=== PATIENT | male | born 1935 | race Hispanic/Latino ===

== ENCOUNTER 2017-10-08 13:41 | Inpatient (IN) | payer MEDICARE ==
[2017-10-08] MEDS ORDERED: ZOFRAN IV ONE (17:48)
[2017-10-08] MEDS ORDERED: NACL 0.9% 500 ML 500 ML IV ONE (17:48)
[2017-10-08] MEDS ORDERED: MORPHINE IV ONE (17:48)
[2017-10-08 18:26] LABS: Basophils # (Auto) 0.1 K/mm3 (0.0-0.1); Basophils % (Auto) 0.5 % (0.0-1.8); Eosinophils % (Auto) 0.2 % (0.0-4.3); Hematocrit 39.2 % (35.5-45.6); Hemoglobin 12.8 gm/dl (11.8-15.2); Lymphocytes # (Auto) 2.1 K/mm3 (1.2-5.4); Lymphocytes % (Auto) 13.4 % (13.4-35.0); Mean Corpuscular HGB Conc 33 % (32-34); Mean Corpuscular Hemoglobin 30 pg (28-32); Mean Corpuscular Volume 93 fl (84-94); Monocytes # (Auto) 1.7 K/mm3 (0.0-0.8); Monocytes % (Auto) 11.2 % (0.0-7.3); Platelet Count 263 K/mm3 (140-440); Red Blood Count 4.24 M/mm3 (3.65-5.03); Red Cell Distribution Width 13.6 % (13.2-15.2)
--- NOTE | 2017-10-08 18:33 | Emergency Department Report ---
HPI - General Chief Complaint: Extremity Injury, Lower Time Seen by Provider: 10/08/17 16:28 - HPI HPI: The patient is a 81-year-old male who presents for evaluation of bilateral lower leg pain and sensation change. The patient states that since 10:50 PM last night, he has experienced bilateral lower extremity pain, concentrated to the anterior quadriceps, sharp in quality, constant, exacerbated with ambulation or movement of the legs at the hip or knee joints, and associated with numbness of the bilateral toes and distal feet, and mild weakness in the distal right lower leg. He also states that his coordination ambulating has worsened since this morning. The patient denies fever, trauma to the head or head injury, headache, neck pain, neck stiffness, chest pain, dyspnea, abdominal pain, dysuria, flank pain, back pain, vision or hearing changes, smell or taste changes, paresthesias of the arms, head, or body, facial drooping , slurred speech, seizure-like activity, urine or bowel incontinence or retention, or other focal neurological deficit. He shares that he received an ultrasound of his aorta earlier today at his vascular surgeon's office and it was negative for aortic pathology. ED Past Medical Hx - Past Medical History Previous Medical History?: Yes Hx Heart Attack/AMI: Yes (1999) Hx Diabetes: Yes - Surgical History Past Surgical History?: Yes Hx Internal Defibrillator: Yes (x3) Additional Surgical History: aortic aneurysm repair - Social History Smoking Status: Never Smoker ED Review of Systems ROS: Stated complaint: LEG NUMBNESS Other details as noted in HPI Constitutional: denies: fever ENT: denies: throat or neck pain Respiratory: denies: cough, shortness of breath Cardiovascular: denies: chest pain Endocrine: denies unexplained weight loss or gain Gastrointestinal: denies: abdominal pain, nausea Genitourinary: denies: dysuria Musculoskeletal: reports leg pain denies: leg swelling Skin: denies: rash Neurological: denies: headache Hematological/Lymphatic: denies: easy bleeding or easy bruising Psych: denies sadness or hopelessness Physical Exam - Physical Exam Vital Signs: Vital Signs 10/08/17 14:03 Temperature 98.8 F Pulse Rate 80 Respiratory 16 Rate Blood Pressure 122/54 O2 Sat by Pulse 97 Oximetry Physical Exam: General: well-nourished, well-developed, no acute distress Head: Normocephalic, atraumatic Eyes: normal sclera, PERRL, EOM intact ENT: Mucous membranes are pale and dry Neck: trachea midline, neck supple, No neck stiffness, no cervical adenopathy Respiratory: Breath sounds equal bilaterally, no wheezing, rales, or rhonchi Cardio: S1 and S2 present, no murmurs, rubs, gallops, capillary refill is delayed in fingers and toes Abdomen: Normoactive bowel sounds, soft abdomen, no tenderness whatsoever Chest WALL/Back: No tenderness to palpation of the chest wall, no CVA tenderness with percussion Musc: Inspection of the back unremarkable, no midline tenderness of the cervical , thoracic, or lumbar back midline or paraspinal musculature, normal active range of motion at the hip intact bilaterally, no spinous step-off or obvious deformity, ipsi-lateral and contralateral straight leg raise tests are negative. On extremity testing, compartments are soft and pliable, no lower extremity muscular atrophy, spasticity, fasciculations, or clonus, no obvious gross sensation deficit including web space between 1st and 2nd toes, distal pulses intact in the feet bilaterally, capillary refill in the toes delayed bilaterally Skin: No rash Neuro: alert oriented x4, normal cognition, speech normal, no facial drooping, no uvula or tongue deviation on protrusion, no deficit with rotation of neck or shoulder shrug, 4+ motor strength present with flexion of the right leg at the hip joint and extension of the right leg at the knee joint, no other appreciable motor deficits in the left leg or upper extremities with flexion or extension at the shoulder, elbow, wrist, hip, knee, or ankles bilaterally, no obvious gross sensation deficit to crude touch or 2 pt discrimination throughout , 2+ symmetric reflexes on DTR testing at the elbow, forearm, patella, and ankles bilaterally, no coordination deficit with [id number] or eozl-[id number] testing, Babinski downgoing, romberg negative, patient unable to to ambulate without assistance Psych: Normal affect ED Course Vital Signs 10/08/17 14:03 Temperature 98.8 F Pulse Rate 80 Respiratory 16 Rate Blood Pressure 122/54 O2 Sat by Pulse 97 Oximetry ED Medical Decision Making - Lab Data Result diagrams: 10/08/17 17:51 10/08/17 17:51 - Medical Decision Making The patient was seen and examined by myself. The patient is placed on a mandrel press hand and continuous pulse ox. On initial evaluation, the patient was found to be in no distress. Evaluation orders were placed. The patient is given IV pain medicine. Lab results revealed leukocytosis, WBC 15. CT scan of the head is negative for findings concerning for acute stroke. As the patient' s symptoms began last night, greater than 12 hours ago, and the patient not a candidate for TPA. The patient is given a tablet of aspirin for treatment of potential TIA. CT scan of lumbar spine is negative for fracture or subluxation. X-ray of the right knee revealed a large right knee effusion. A consultation for the on-call orthopedic surgeries placed for the a.m. Doppler of the lower extremities to rule out acute DVT is ordered as well. The on-call hospitalist service was contacted. They agreed to admit the patient for further treatment and close monitoring. The ED admit order was placed. The patient was admitted in guarded condition. CT angio of the aorta and lower extremities is ordered and is pending. The patient was reevaluated and found to remain with intact dorsalis pedis pulses bilaterally and intact capillary refill of the toes bilaterally. The patient signed off to the admitting physician Dr. Thompson, whom agreed to follow-up on pending CT angiogram imaging and to subsequently arranged resulting appropriate management. Critical care attestation.: If time is entered above; I have spent that time in minutes in the direct care of this critically ill patient, excluding procedure time. ED Disposition Clinical Impression: Acute pain of right knee, Knee effusion, right, Bilateral leg pain TIA (transient ischemic attack) Qualifiers: Transient cerebral ischemia type: unspecified Qualified Code(s): G45.9 - Transient cerebral ischemic attack, unspecified Disposition: 09 OP ADMIT IP TO THIS HOSP Is pt being admited?: Yes Does the pt Need Aspirin: Yes Condition: Stable Time of Disposition: 18:40 - Assessment Assessment Interval: Baseline - Level of Consciousness 1a. Level of Consciousness: alert - LOC Questions 1b. LOC Questions: answers correctly - LOC Command 1c. LOC Commands: performs tasks correctly - Best Gaze 2. Best Gaze: normal - Visual 3. Visual: no visual loss - Facial Palsy 4. Facial Palsy: normal symmetrical movement - Motor Arm 5b. Motor Arm Right: no drift 5a. Motor Arm Left: no drift - Motor Leg 6a. Motor Leg Left: no drift 6b. Motor Leg Right: no drift - Limb Ataxia 7. Limb Ataxia: present 1 limb - Sensory 8. Sensory: normal - Best Language 9. Best Language: no aphasia - Dysarthria 10. Dysarthria: normal - Extinction and Inattention 11. Extinction/Inattention: no abnormality - Scoring Total Score: 1 Stroke Severity: Minor Stroke
[2017-10-08 18:54] LABS: Albumin 4.1 g/dL (3.9-5); Calcium 10.4 mg/dL (8.4-10.2)
--- NOTE | 2017-10-08 19:16 | Cat Scan Report ---
FINAL REPORT EXAM: CT HEAD/BRAIN WO CON HISTORY: bilateral distal feet numbness, quadraceps pain TECHNIQUE: CT head without contrast PRIORS: None. FINDINGS: No acute intra-axial or extra-axial hemorrhage is identified. There is no evidence of midline shift or mass effect. The ventricles and sulci are within normal limits. Slaughter-white matter differentiation is intact. No acute parenchymal abnormalities seen. Bony calvarium is grossly intact. Visualized portions of the mastoids and paranasal sinuses are unremarkable. IMPRESSION: Negative CT head
--- NOTE | 2017-10-08 19:21 | Cat Scan Report ---
FINAL REPORT EXAM: CT LUMBAR SPINE WO CON HISTORY: bilateral distal feet numbness, quadraceps pain TECHNIQUE: Lumbar spine five views PRIORS: None. FINDINGS: Vertebral bodies demonstrate normal height and alignment. There is a prominent Schmorl's node inferior endplate of L4. There are some marginal vertebral body osteophytes noted. Hypertrophic facet joint changes are present most prominent L3-L4 through L5-S1 there is posterior bulging of the discs L3-L4 L4-5 and L5-S1. There is no evidence of spondylolisthesis. Transverse and spinous processes are intact SI joints are unremarkable. 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
[2017-10-08] MEDS ORDERED: NACL 0.9% 1000 ML 1,000 ML IV ONE (20:19)
[2017-10-08] MEDS ORDERED: NORCO 5/325 PO ONE (20:20)
[2017-10-08] MEDS ORDERED: BABY ASPIRIN PO ONE (20:35)
[2017-10-08 21:00] LABS: INR 1.05 (0.87-1.13)
[2017-10-08 21:01] LABS: Partial Thromboplastin Time 33.9 Sec. (24.2-36.6)
--- NOTE | 2017-10-08 22:11 | XRay Report ---
FINAL REPORT EXAM: XR KNEE 3V RT HISTORY: right knee pain and swelling TECHNIQUE: Right knee three views PRIORS: None. FINDINGS: There is moderate to large joint effusion present. No acute fracture is identified. No dislocation seen. The joint spaces are within normal limits IMPRESSION: Joint effusion
[2017-10-08] MEDS ORDERED: TYLENOL PO PRN (22:46)
[2017-10-08] MEDS ORDERED: ZOFRAN IV PRN (22:47)
[2017-10-08] MEDS ORDERED: MAGNESIUM SULFATE 2GM/50ML 2 GM/50 ML BAG IV ONE (22:48)
--- NOTE | 2017-10-08 23:18 | Cat Scan Report ---
FINAL REPORT EXAM: CT ANGIO ABD/FEMORAL ABD AORTA HISTORY: bilateral lower leg pain and numbness TECHNIQUE: CT abdomen and pelvis and lower extremities with intravenous contrast Study performed with CT angiographic technique. Multiplanar and maximum intensity projection reconstructions were obtained PRIORS: None. FINDINGS: No focal abnormalities identified within the liver parenchyma. There is mild dependent atelectasis at the lung bases. Spleen is normal in size and attenuation no peripancreatic inflammatory changes are observed The kidneys demonstrate symmetric contrast enhancement. The adrenal glands are unremarkable. Noted are several lower pole right renal cysts largest measuring 2.6 centimeters. There is some scarring at the lower pole left kidney. No evidence for colonic or small bowel distention. No free-fluid or free air identified there is aneurysmal dilatation of the thoracic aorta endovascular stent present. The stent is patent. The aorta measures 3.9 centimeters distally. The left common and external iliac arteries are occluded. There is reconstitution at the level of the common femoral artery. The left deep and superficial femoral arteries are patent. The left popliteal artery demonstrates minimal atherosclerosis without significant stenosis or occlusion. There is runoff at the bifurcation to the arteries of the lower leg The right common iliac artery has a stent proximally. There is some atherosclerosis at the right external iliac artery. The right common femoral and popliteal arteries are patent. There lung off to the arteries of the lower leg at the level of the trifurcation. No major vascular occlusion identified on the right. 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 Some scarring noted at the lower pole left kidney
[2017-10-09] MEDS ORDERED: ROCEPHIN/NS 1 GM/50 ML 1 GM/50 ML BAG IV ONE (03:04)
[2017-10-09] MEDS ORDERED: cefTRIAXone 1 GM in NACL 0.9% 20 ML IV ONE (03:15)
--- NOTE | 2017-10-09 05:10 | History and Physical Report ---
CHIEF COMPLAINT: Pain and weakness of the lower extremity. HISTORY OF PRESENT ILLNESS: The patient is an 81-year-old male who started having pain in both lower extremities with change in sensation. The patient also said he feels weak In his lower extremity and could not walk because of this feeling. He has history of associated numbness of both feet and both toes. The patient denies history of any trauma. There was also no history of fever or chills. No history of shortness of breath or chest pain. The patient also denied history of speech impairment or visual impairment. The patient presented for evaluation and had CAT scan of the head done, CAT scan of the lumbar spine done that shows degenerative disk changes from lumbar 3 to lumbar 4 through L5-S1 with posterior disk bulges. There is also finding of facet joints arthropathy. 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 PAST MEDICAL HISTORY: Pertinent for coronary artery disease status post myocardial infarction. Also, the patient has past medical history of diabetes mellitus. PAST SURGICAL HISTORY: Pertinent for defibrillator placement, aortic aneurysm repair. FAMILY HISTORY: Noncontributory. SOCIAL HISTORY: The patient lives with family. Does not smoke, does not drink alcohol and does not use illicit drugs. MEDICATIONS: The patient's home medications are not known at this time. ALLERGIES: THE PATIENT IS ALLERGIC TO PENICILLIN. REVIEW OF SYSTEMS: CONSTITUTIONAL: There is no fever, no chills, no diaphoresis. HEENT: There is no headache or sore throat. CARDIOVASCULAR: There is no chest pain or orthopnea. RESPIRATORY: There is no shortness of breath or cough. GASTROINTESTINAL SYSTEM: There is no nausea, no vomiting, no abdominal pain, diarrhea or constipation. NEUROLOGICAL: There is weakness of the lower extremity with numbness in the feet and difficulty with ambulation or walking. MUSCULOSKELETAL: Show pain in both lower extremities with no swelling noted. DERMATOLOGICAL SYSTEM: There is no skin rash or itching. GENITOURINARY: There is no dysuria, hematuria or flank pain. Rest of the system review is normal. PHYSICAL EXAMINATION: GENERAL: At the time of exam, the patient was found to be alert, oriented x 3, and not in acute distress. VITAL SIGNS: Temperature of 98.8, pulse of 80, respirations of 16, blood pressure 122/54, O2 sat of 97% on room air. HEENT: Showed pupils to be equal, round, reactive to light and accommodating. Extraocular muscles are intact. NECK: Supple with no JVD or carotid bruit. CARDIOVASCULAR: Showed normal first and second heart sounds with no gallops or murmurs. RESPIRATORY: Show good air entry on both sides of the lungs with no abnormal breath sounds. GASTROINTESTINAL SYSTEM: Show abdomen to be full, soft, nontender with no organomegaly or rigidity. NEUROLOGICAL: Shows weakness in both lower extremities, worse on the right lower extremity than the left. There is normal sensory function with lower extremity. MUSCULOSKELETAL SYSTEM: Show no joint swelling and no tenderness in the joints. DERMATOLOGICAL SYSTEM: Show no skin rash. GENITOURINARY: Show no costovertebral angle tenderness. PERTINENT LAB AND IMAGING STUDIES: The patient had CT of the head without contrast done that was unremarkable. Lumbar spine x-ray was done that shows degenerative disk changes from L3-L4 through L5-S1 with posterior disk bulges, ____ of nodes noted, inferior osteophyte of L4 facet joint arthropathy, was noted in the lower lumbar spine and abdominal aortic aneurysm with stent was partially seen. The patient had CT of the abdomen and pelvis done, which shows a fusiform abdominal aortic aneurysm within the vascular stent present. 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 There is lower pole right renal cyst noted as well and some form of scarring noted at the lower pole of the left kidney. DIAGNOSES: 1. Weakness of the lower limbs: 2. 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 PLAN: The patient will be admitted to medical floor and we will have Neurology consult with Dr. Kingsley this morning. Also, the patient will have vascular surgical consult with Dr. 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 The patient will have physical therapy consult because of weakness of the lower extremities and will continue the orthopedic consult put in by the Emergency Room physician because of right knee pain and swelling. The patient will have MRI of the brain without contrast done this morning and will also have bilateral carotid Doppler done because of this weakness in both lower extremities. The patient will be on IV Zofran 4 mg every 8 hours for nausea and vomiting and will be on IV magnesium 2 grams in 500 mL because of low magnesium. The patient will be on Tylenol 650 mg by mouth every 4 hours for fever, headache and DVT prophylaxis will be through sequential compressive device until the patient's MRI of the brain is finally analyzed. The patient's home medication will be reconciled when there are none and will be started. JOB# [id number] OCN/TAI SRIVASTAVA
[2017-10-09] MEDS ORDERED: APRESOLINE IV PRN (07:45)
[2017-10-09] MEDS ORDERED: MORPHINE IV PRN ×2 (07:45→10:00)
[2017-10-09] MEDS ORDERED: MAGNESIUM SULFATE IV ONE (07:57)
--- NOTE | 2017-10-09 09:37 | Nuclear Medicine Report ---
LUNG SCAN, VENTILATION AND PERFUSION: History: Elevated d-dimer. Technique: 5mci of Tc99m MAA was infused for the perfusion images. 15mci XE 133 gas was inhaled for the ventilatory images. No relevant comparison study. Findings: Inhalation of Xenon gas demonstrates a normal distribution of the activity throughout both lungs. The wash out phases show no focal retention of activity. After injection of Technetium 99m macroaggregated albumin gamma camera imaging of the lungs in multiple projections demonstrates normal pulmonary contours with a homogeneous distribution of activity. No focal areas of perfusion deficiency are identified. IMPRESSION: Low probability for pulmonary embolus.
--- NOTE | 2017-10-09 10:02 | XRay Report ---
ROUTINE CHEST, TWO VIEWS: HISTORY: Dyspnea. The trachea, heart, mediastinal contour, lung thomas and bony thorax are unremarkable. Single lead pacemaker device is in position. IMPRESSION: Unremarkable chest x-ray.
[2017-10-09] MEDS ORDERED: MAGNESIUM SULFATE 1 GM in NACL 0.9% 50 ML IV ONE (10:30)
[2017-10-09] MEDS: COLCRYS PO SCH ×2 (11:38→22:50)
[2017-10-09] MEDS: HALFPRIN EC PO SCH (11:38)
--- NOTE | 2017-10-09 12:53 | Progress Note ---
<ILANA DISLA - Last Filed: 10/09/17 14:40> Assessment and Plan Assessment and plan: Brief history obtained from admitting physician -81-year-old male who presents for evaluation of bilateral lower leg pain and sensation change. Patient says he felt weak and couldn't walk because of this feeling. 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 Continues to complain of R knee pain. no new complaints at this time. Labs, nursing notes and reports reviewed. Hospitalist Physical - Constitutional Vitals: Temp Pulse Resp BP Pulse Ox 99.4 F 73 18 133/60 94 10/09/17 08:04 10/09/17 08:04 10/09/17 08:04 10/09/17 08:04 10/09/17 08:04 General appearance: Present: no acute distress, well-nourished - EENT Eyes: Present: PERRL, EOM intact ENT: hearing intact, clear oral mucosa - Neck Neck: Present: supple - Respiratory Respiratory effort: normal Respiratory: bilateral: CTA - Cardiovascular Rhythm: regular Heart Sounds: Present: S1 & S2 - Extremities Extremities: no ischemia, No edema - Abdominal General gastrointestinal: soft, non-tender, non-distended - Integumentary Integumentary: Present: clear, warm, dry - Psychiatric Psychiatric: appropriate mood/affect, intact judgment & insight, cooperative - Neurologic Neurologic: CNII-XII intact, moves all extremities - Allied Health Allied health notes reviewed: nursing Results - Labs CBC & Chem 7: 10/08/17 17:51 10/08/17 17:51 Labs: Laboratory Last Values WBC 15.4 K/mm3 (4.5-11.0) H 10/08/17 17:51 RBC 4.24 M/mm3 (3.65-5.03) 10/08/17 17:51 Hgb 12.8 gm/dl (11.8-15.2) 10/08/17 17:51 Hct 39.2 % (35.5-45.6) 10/08/17 17:51 MCV 93 fl (84-94) 10/08/17 17:51 MCH 30 pg (28-32) 10/08/17 17:51 MCHC 33 % (32-34) 10/08/17 17:51 RDW 13.6 % (13.2-15.2) 10/08/17 17:51 Plt Count 263 K/mm3 (140-440) 10/08/17 17:51 Lymph % (Auto) 13.4 % (13.4-35.0) 10/08/17 17:51 [place] % (Auto) 11.2 % (0.0-7.3) H 10/08/17 17:51 Eos % (Auto) 0.2 % (0.0-4.3) 10/08/17 17:51 Baso % (Auto) 0.5 % (0.0-1.8) 10/08/17 17:51 Lymph # 2.1 K/mm3 (1.2-5.4) 10/08/17 17:51 [place] # 1.7 K/mm3 (0.0-0.8) H 10/08/17 17:51 Eos # 0.0 K/mm3 (0.0-0.4) 10/08/17 17:51 Baso # 0.1 K/mm3 (0.0-0.1) 10/08/17 17:51 Seg Neutrophils % 74.7 % (40.0-70.0) H 10/08/17 17:51 Seg Neutrophils # 11.5 K/mm3 (1.8-7.7) H 10/08/17 17:51 PT 14.3 Sec. (12.2-14.9) 10/08/17 20:38 INR 1.05 (0.87-1.13) 10/08/17 20:38 APTT 33.9 Sec. (24.2-36.6) 10/08/17 20:38 D-Dimer 1127.16 ng/mlDDU (0-234) H 10/08/17 20:38 Sodium 134 mmol/L (137-145) L 10/08/17 17:51 Potassium 3.9 mmol/L (3.6-5.0) 10/08/17 17:51 Chloride 92.5 mmol/L (98-107) L 10/08/17 17:51 Carbon Dioxide 26 mmol/L (22-30) 10/08/17 17:51 Anion Gap 19 mmol/L 10/08/17 17:51 BUN 24 mg/dL (9-20) H 10/08/17 17:51 Creatinine 1.3 mg/dL (0.8-1.5) 10/08/17 17:51 Estimated GFR 53 ml/min 10/08/17 17:51 BUN/Creatinine Ratio 18 % 10/08/17 17:51 Glucose 119 mg/dL (75-100) H 10/08/17 17:51 POC Glucose 238 (70-105) H 10/09/17 11:39 Lactic Acid 0.90 mmol/L (0.7-2.0) 10/08/17 20:38 Uric Acid 8.4 mg/dL (3.5-7.6) H 10/08/17 20:38 Calcium 10.4 mg/dL (8.4-10.2) H 10/08/17 17:51 Magnesium 1.40 mg/dL (1.7-2.3) L 10/08/17 17:51 Total Bilirubin 0.90 mg/dL (0.1-1.2) 10/08/17 17:51 AST 11 units/L (5-40) 10/08/17 17:51 ALT 9 units/L (7-56) 10/08/17 17:51 Alkaline Phosphatase 96 units/L (35-129) 10/08/17 17:51 Total Creatine Kinase 25 units/L (55-170) L 10/08/17 17:51 NT-Pro-B Natriuret Pep 703.1 pg/mL (0-900) 10/08/17 17:51 Total Protein 6.4 g/dL (6.3-8.2) 10/08/17 17:51 Albumin 4.1 g/dL (3.9-5) 10/08/17 17:51 Albumin/Globulin Ratio 1.8 % 10/08/17 17:51 <YUNGMATTHEW R - Last Filed: 10/10/17 00:41> Assessment and Plan Assessment and plan: I saw and evaluated the patient on the day of service. I agree with the findings and the plan of care as documented in the Nurse Practitioner's~note. Hospitalist Physical - Constitutional Vitals: Temp Pulse Resp BP Pulse Ox 98.4 F 69 20 135/72 93 10/09/17 20:34 10/09/17 20:34 10/09/17 20:34 10/09/17 20:34 10/09/17 20:34 Results - Labs CBC & Chem 7: 10/08/17 17:51 10/08/17 17:51 Labs: Laboratory Last Values WBC 15.4 K/mm3 (4.5-11.0) H 10/08/17 17:51 RBC 4.24 M/mm3 (3.65-5.03) 10/08/17 17:51 Hgb 12.8 gm/dl (11.8-15.2) 10/08/17 17:51 Hct 39.2 % (35.5-45.6) 10/08/17 17:51 MCV 93 fl (84-94) 10/08/17 17:51 MCH 30 pg (28-32) 10/08/17 17:51 MCHC 33 % (32-34) 10/08/17 17:51 RDW 13.6 % (13.2-15.2) 10/08/17 17:51 Plt Count 263 K/mm3 (140-440) 10/08/17 17:51 Lymph % (Auto) 13.4 % (13.4-35.0) 10/08/17 17:51 [place] % (Auto) 11.2 % (0.0-7.3) H 10/08/17 17:51 Eos % (Auto) 0.2 % (0.0-4.3) 10/08/17 17:51 Baso % (Auto) 0.5 % (0.0-1.8) 10/08/17 17:51 Lymph # 2.1 K/mm3 (1.2-5.4) 10/08/17 17:51 [place] # 1.7 K/mm3 (0.0-0.8) H 10/08/17 17:51 Eos # 0.0 K/mm3 (0.0-0.4) 10/08/17 17:51 Baso # 0.1 K/mm3 (0.0-0.1) 10/08/17 17:51 Seg Neutrophils % 74.7 % (40.0-70.0) H 10/08/17 17:51 Seg Neutrophils # 11.5 K/mm3 (1.8-7.7) H 10/08/17 17:51 ESR 66 mm/Hr (0-20) 10/09/17 15:31 PT 14.3 Sec. (12.2-14.9) 10/08/17 20:38 INR 1.05 (0.87-1.13) 10/08/17 20:38 APTT 33.9 Sec. (24.2-36.6) 10/08/17 20:38 D-Dimer 1127.16 ng/mlDDU (0-234) H 10/08/17 20:38 Sodium 134 mmol/L (137-145) L 10/08/17 17:51 Potassium 3.9 mmol/L (3.6-5.0) 10/08/17 17:51 Chloride 92.5 mmol/L (98-107) L 10/08/17 17:51 Carbon Dioxide 26 mmol/L (22-30) 10/08/17 17:51 Anion Gap 19 mmol/L 10/08/17 17:51 BUN 24 mg/dL (9-20) H 10/08/17 17:51 Creatinine 1.3 mg/dL (0.8-1.5) 10/08/17 17:51 Estimated GFR 53 ml/min 10/08/17 17:51 BUN/Creatinine Ratio 18 % 10/08/17 17:51 Glucose 119 mg/dL (75-100) H 10/08/17 17:51 POC Glucose 109 (70-105) H 10/09/17 16:25 Lactic Acid 0.90 mmol/L (0.7-2.0) 10/08/17 20:38 Uric Acid 8.4 mg/dL (3.5-7.6) H 10/08/17 20:38 Calcium 10.4 mg/dL (8.4-10.2) H 10/08/17 17:51 Magnesium 1.40 mg/dL (1.7-2.3) L 10/08/17 17:51 Total Bilirubin 0.90 mg/dL (0.1-1.2) 10/08/17 17:51 AST 11 units/L (5-40) 10/08/17 17:51 ALT 9 units/L (7-56) 10/08/17 17:51 Alkaline Phosphatase 96 units/L (35-129) 10/08/17 17:51 Total Creatine Kinase 25 units/L (55-170) L 10/08/17 17:51 C-Reactive Protein 19.00 mg/dL (0.00-1.30) H 10/09/17 15:31 NT-Pro-B Natriuret Pep 703.1 pg/mL (0-900) 10/08/17 17:51 Total Protein 6.4 g/dL (6.3-8.2) 10/08/17 17:51 Albumin 4.1 g/dL (3.9-5) 10/08/17 17:51 Albumin/Globulin Ratio 1.8 % 10/08/17 17:51
--- NOTE | 2017-10-09 21:18 | Consultation ---
History of Present Illness Consult date: 10/09/17 Requesting physician: MATTHEW BARRAGAN Reason for Consult: weakness and paresthesias of legs Chief complaint: weakness and paresthesias of legs History of present illness: This 81-year-old left-handed white male according to the ER physician yesterday : "The patient states that since 10:50 PM last night, he has experienced bilateral lower extremity pain, concentrated to the anterior quadriceps, sharp in quality, constant, exacerbated with ambulation or movement of the legs at the hip or knee joints, and associated with numbness of the bilateral toes and distal feet, and mild weakness in the distal right lower leg. 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 He states symptoms began yesterday morning when he couldn't stand primarily due to weakness in the right leg. He's had pain in the legs from the thighs down since this began with numbness and tingling in the kneecaps and tops of the feet these latter symptoms now improving to being intermittent. He has had no change in bowel or bladder control. He thinks he stopped having erections in 1979 duplex scan showed less than 50% stenosis of the carotids. CT scan of head shows moderate cerebral atrophy. Lumbar spine CT scan shows on my review moderate stenosis at L4-5 with greatly decreased foramina, mild to moderate stenosis at L3-4 with some narrowing of the right foramen, mild disc bulge at L2 -3 with mild narrowing of both foramina right more than left and mild central bulge at L5-S1 but intact foramina. Past History Past Medical History: CAD (with stent that did not work which led then to defibrillator), hypertension Past Surgical History: Other (defibrillator in 2002 of 4 replacements since then ) Social history: other (never illicit drugs. She still works part-time doing wholesale car sales. Was in the [employer] but without chemical exposures.) . denies: smoking (quit in 1998), alcohol abuse (drinks occasional cocktail. Usually 1 or 2 glasses of wine with dinner.), prescription drug abuse, IV drug use Family history: hypertension (unknown), other (no epilepsy). denies: stroke Medications and Allergies Allergies Allergy/AdvReac Type Severity Reaction Status Date / Time Penicillins AdvReac Rash Unverified 11/14/13 09:47 Home Medications Medication Instructions Recorded Confirmed Last Taken Type Aspirin EC [Aspirin Enteric Coated 81 mg PO QDAY 10/09/17 10/09/17 Unknown History TAB] Carvedilol [Coreg] 12.5 mg PO BID 10/09/17 10/09/17 Unknown History Cilostazol [Pletal] 100 mg PO HS 10/09/17 10/09/17 Unknown History amLODIPine [Norvasc] 10 mg PO DAILY 10/09/17 10/09/17 Unknown History metFORMIN 1,000 mg PO BID 10/09/17 10/09/17 Unknown History Active Meds: Active Medications Acetaminophen (Tylenol) 650 mg PO Q4H PRN PRN Reason: For Pain/Fever/Headache Aspirin (Halfprin Ec) 81 mg PO QDAY [facility] Last Admin: 10/09/17 11:38 Dose: 81 mg Atorvastatin Calcium (Lipitor) 40 mg PO QHS [facility] Colchicine (Colcrys) 0.6 mg PO BID [facility] Last Admin: 10/09/17 11:38 Dose: 0.6 mg Enoxaparin Sodium (Lovenox) 40 mg SUB-Q QDAY@2200 [facility] Hydralazine HCl (Apresoline) 10 mg IV Q30MIN PRN PRN Reason: Hypertension Morphine Sulfate (Morphine) 2 mg IV Q4H PRN PRN Reason: Pain, Moderate (4-6) Ondansetron HCl (Zofran) 4 mg IV Q8H PRN PRN Reason: Nausea And Vomiting Review of Systems All systems: negative (was walking fine prior to these events. No headaches or dizziness. Slight snoring but no pauses mentioned and not sleepy driving. Normal memory for age.) Physical Examination - Vital Signs Vital Signs: Vital Signs Temp Pulse Resp BP Pulse Ox 98.8 F 80 16 122/54 97 10/08/17 14:03 10/08/17 14:03 10/08/17 14:03 10/08/17 14:03 10/08/17 14:03 - Physical Exam Narrative exam: General Appearance: well developed well nourished (per BMI) early 80s white male in [facility]. HEENT: atraumatic, normocephalic; no bruits, 2+ Sasha without soreness or induration or enlargement, sclerae nonicteric. Oropharynx pink and moist. Neck: supple, no bruits. Heart: no murmur or extra sounds. Extremities: no clubbing, cyanosis or edema. No posterior tibial or dorsalis pedis pulses palpable on either side. Neurologic Exam: Mental Status: Awake, alert, oriented X 3, speech is clear, names pen and clip but not tip of pen, and abstracts well. Names President and Environmental Health Technician, serial 7's intact, no right-left confusion, gets 2 of 3 objects at 3 minutes, spells WORLD backwards correctly. Cranial Nerves: thomas full, no papilledema, SVPs present, PERRLA, EOMs full with some quick phase horizontal nystagmus to left lateral gaze but no diplopia , facial sensation intact to pinprick and light touch, no facial weakness, Gastelum is midline, gags are positive, shoulder shrug is 5 X 2, tongue protrudes midline. Cerebellar: finger to nose and heel to wright. Sensory: intact to light touch, pinprick decreased below knees, decreased vibrations right ankle and toes. Double simultaneous stimulation is intact. Motor Exam Upper Extremities: no drift or pronation, Mary intact. Senior Sustainability Consultant are 5 X 2, tone is normal. Strength is 5 throughout except triceps are 4+ bilaterally without pain, ADM 05 but there is some intrinsic atrophy though no fasciculations. Motor Exam Lower Extremities: No leg lag. Anxious 5 except as follows: Quadriceps are 4+ bilaterally, hamstrings are 3+ to 4- right but with difficult exam due to pain in the knee And 4+ on the left area to tibia shows give way with local pain at 4+ on the left. Peroneal is 4- on the right with local pain and 4-4+ on the left, EHL is 4- on the left. Mary intact. Tone is normal. No atrophy or fasciculations are noted visually. Reflexes: Palmomental is negative, snout and jaw jerk are slightly positive. Triceps are 2+ right and 1+ left, biceps are 2+ right and 1+ left and brachioradialis are 2 right and 1+ left bilaterally. Cindy's is negative bilaterally. Knee jerks are at least trace on the right but difficult to check fully because of local pain and swelling around the kneecap and trace to 1 on the left, ankle jerks are 0 bilaterally even with reinforcement and without clonus. Toes are downgoing bilaterally to Babinski testing with pain in the ball of the foot on the left during testing. - Assessment Assessment Interval: Baseline - Level of Consciousness 1a. Level of Consciousness: alert - LOC Questions 1b. LOC Questions: answers correctly - LOC Command 1c. LOC Commands: performs tasks correctly - Best Gaze 2. Best Gaze: normal - Visual 3. Visual: no visual loss - Facial Palsy 4. Facial Palsy: normal symmetrical movement - Motor Arm 5b. Motor Arm Right: no drift - Motor Leg 6a. Motor Leg Left: no drift - Limb Ataxia 7. Limb Ataxia: present 1 limb - Sensory 8. Sensory: normal - Best Language 9. Best Language: no aphasia - Dysarthria 10. Dysarthria: normal - Extinction and Inattention 11. Extinction/Inattention: no abnormality Results - Laboratory Findings CBC and BMP: 10/08/17 17:51 10/08/17 17:51 Abnormal Lab Findings: Abnormal Labs 10/08/17 10/08/17 10/08/17 17:51 17:51 20:38 WBC 15.4 H [place] % (Auto) 11.2 H [place] # 1.7 H Seg Neutrophils % 74.7 H Seg Neutrophils # 11.5 H D-Dimer 1127.16 H Sodium 134 L Chloride 92.5 L BUN 24 H Glucose 119 H POC Glucose Uric Acid Calcium 10.4 H Magnesium 1.40 L Total Creatine Kinase 25 L C-Reactive Protein 10/08/17 10/09/17 10/09/17 20:38 08:10 11:39 WBC [place] % (Auto) [place] # Seg Neutrophils % Seg Neutrophils # D-Dimer Sodium Chloride BUN Glucose POC Glucose 119 H 238 H Uric Acid 8.4 H Calcium Magnesium Total Creatine Kinase C-Reactive Protein 10/09/17 10/09/17 15:31 16:25 WBC [place] % (Auto) [place] # Seg Neutrophils % Seg Neutrophils # D-Dimer Sodium Chloride BUN Glucose POC Glucose 109 H Uric Acid Calcium Magnesium Total Creatine Kinase C-Reactive Protein 19.00 H Assessment and Plan Impression: 1. Possible lacunar stroke, perhaps thalamic since associated with pain 2. Arthritis, perhaps gouty 3. Lumbar spinal stenosis Plan: 1. I spoke to Dr. Barragan who thinks he has gout and we'll be treating it with steroids and colchicine. She will order additional labs for arthritis. 2. I discussed the possibility of a lacunar stroke such as a thalamic stroke, suggested in part by asymmetric reflexes. However I concur with treating possible gout to see if all his symptoms resolved. 3. I told Dr. Barragan that I have been told that tertiary center such as [facility] are able to do MRIs even on older defibrillators and pacemakers, which may help distinguish a lacunar stroke from lumbar spinal stenosis. Oral or intravenous steroids could help spinal stenosis but would not help a stroke. 45 minutes spent including review of 100s of lumbar spine CT and head CT images. Thank you for an interesting consult on this pleasant early 80s man. Will sign off for now, call for any questions.
[2017-10-09] MEDS: LOVENOX SUB-Q SCH (22:50)
[2017-10-10 01:40] LABS: BUN/Creatinine Ratio 19; Blood Urea Nitrogen 21 mg/dL (9-20); Hemolysis Index 0
--- NOTE | 2017-10-10 08:24 | Consultation ---
History of Present Illness - Reason for Consult Consult date: 10/10/17 PVD, right prepatellar effusion - History of Present Illness Patient with a history of gout, spinal stenosis and peripheral vascular disease presents with bilateral lower extremity weakness and pain. A CTA of his abdomen and pelvis with runoff to the feet was performed which demonstrates an aorto unity graft extending into the right common iliac artery with occlusion of the left common iliac artery. The left lower extremity is perfuse through. Epigastric collaterals. The right SFA is occluded in the mid and distal portions. Patient's symptoms are not typical of arterial disease. At time of examination, the patient's weakness and lateral lower extremity pain and improved somewhat. Additionally, the patient's right knee effusion is smaller for the patient. Patient has not yet been examined by orthopedic surgery. Past History Past Medical History: CAD (with stent that did not work which led then to defibrillator), hypertension, other (gout) Past Surgical History: Other (defibrillator in 2002 of 4 replacements since then ) Social history: other (never illicit drugs. She still works part-time doing wholesale car sales. Was in the [employer] but without chemical exposures.) . denies: smoking (quit in 1998), alcohol abuse (drinks occasional cocktail. Usually 1 or 2 glasses of wine with dinner.), prescription drug abuse, IV drug use Family history: hypertension (unknown), other (no epilepsy). denies: stroke Medications and Allergies Allergies Allergy/AdvReac Type Severity Reaction Status Date / Time Penicillins AdvReac Rash Unverified 06/05/13 09:47 Home Medications Medication Instructions Recorded Confirmed Last Taken Type Aspirin EC [Aspirin Enteric Coated 81 mg PO QDAY 10/09/17 10/09/17 Unknown History TAB] Carvedilol [Coreg] 12.5 mg PO BID 10/09/17 10/09/17 Unknown History Cilostazol [Pletal] 100 mg PO HS 10/09/17 10/09/17 Unknown History amLODIPine [Norvasc] 10 mg PO DAILY 10/09/17 10/09/17 Unknown History metFORMIN 1,000 mg PO BID 10/09/17 10/09/17 Unknown History Active Meds: Active Medications Acetaminophen (Tylenol) 650 mg PO Q4H PRN PRN Reason: For Pain/Fever/Headache Aspirin (Halfprin Ec) 81 mg PO QDAY [facility] Last Admin: 10/09/17 11:38 Dose: 81 mg Atorvastatin Calcium (Lipitor) 40 mg PO QHS [facility] Last Admin: 10/09/17 22:50 Dose: 40 mg Colchicine (Colcrys) 0.6 mg PO BID [facility] Last Admin: 10/09/17 22:50 Dose: 0.6 mg Enoxaparin Sodium (Lovenox) 40 mg SUB-Q QDAY@2200 [facility] Last Admin: 10/09/17 22:50 Dose: 40 mg Hydralazine HCl (Apresoline) 10 mg IV Q30MIN PRN PRN Reason: Hypertension Morphine Sulfate (Morphine) 2 mg IV Q4H PRN PRN Reason: Pain, Moderate (4-6) Ondansetron HCl (Zofran) 4 mg IV Q8H PRN PRN Reason: Nausea And Vomiting Review of Systems All systems: negative Exam - Constitutional Vitals: Temp Pulse Resp BP Pulse Ox 97.8 F 64 20 140/61 96 10/10/17 03:51 10/10/17 03:51 10/10/17 03:51 10/10/17 03:51 10/10/17 03:51 General appearance: Present: no acute distress - EENT Eyes: Present: PERRL ENT: hearing intact - Neck Neck: Present: supple - Respiratory Respiratory effort: normal - Extremities Extremities: no ischemia, No edema - Abdominal General gastrointestinal: Present: deferred Male genitourinary: Present: deferred - Rectal Rectal Exam: deferred - Psychiatric Psychiatric: appropriate mood/affect, cooperative Results - Labs CBC & Chem 7: 10/08/17 17:51 10/10/17 00:59 Labs: Abnormal lab results 10/09/17 10/09/17 10/09/17 Range/Units 08:10 11:39 15:31 Sodium (137-145) mmol/L Chloride (98-107) mmol/L BUN (9-20) mg/dL Glucose (75-100) mg/dL POC Glucose 119 H 238 H (70-105) C-Reactive Protein 19.00 H (0.00-1.30) mg/dL 10/09/17 10/10/17 10/10/17 Range/Units 16:25 00:59 08:22 Sodium 135 L (137-145) mmol/L Chloride 95.6 L (98-107) mmol/L BUN 21 H (9-20) mg/dL Glucose 204 H (75-100) mg/dL POC Glucose 109 H 138 H (70-105) C-Reactive Protein (0.00-1.30) mg/dL - Imaging and Cardiology CT scan - abdomen: report reviewed, image reviewed Assessment and Plan Patient's peripheral vascular disease is at its baseline. He does have flow to bilateral lower extremities which are not likely to be the cause of his current symptoms. He is responding to steroids. We will await evaluation by orthopedic surgery to determine if there is a need for aspiration of his prepatellar fluid collection.
[2017-10-10] MEDS: COLCRYS PO SCH ×2 (09:39→22:55)
[2017-10-10] MEDS: HALFPRIN EC PO SCH (09:39)
--- NOTE | 2017-10-10 11:26 | Progress Note ---
<ILANA DISLA - Last Filed: 10/10/17 11:21> Assessment and Plan Assessment and plan: Brief history obtained from admitting physician -81-year-old male who presents for evaluation of bilateral lower leg pain and sensation change. Patient says he felt weak and couldn't walk because of this feeling. 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 He does have flow to bilateral lower extremities which are not likely to be the cause of his current symptoms Elevated d-dimer VQ scan showed low probability of PE Type 2 diabetes mellitus ADA diet, Accu-Cheks before meals and at bedtime, and A1c, sliding scale insulin Hypomagnesemia Supplemented Hyperuricemia Patient initiated on colchicine DVT prophylaxis Lovenox History Interval history: Patient seen and examined, he says that he is doing much better today. He is able to sit up and took a few steps but experienced pins and needles sensation on the right leg. Swelling has improved on his R knee. Labs, nursing notes and reports reviewed. Hospitalist Physical - Constitutional Vitals: Temp Pulse Resp BP Pulse Ox 98.7 F 64 19 140/61 96 10/10/17 09:33 10/10/17 03:51 10/10/17 09:33 10/10/17 03:51 10/10/17 03:51 General appearance: Present: no acute distress Results - Labs CBC & Chem 7: 10/08/17 17:51 10/10/17 00:59 Labs: Laboratory Last Values WBC 15.4 K/mm3 (4.5-11.0) H 10/08/17 17:51 RBC 4.24 M/mm3 (3.65-5.03) 10/08/17 17:51 Hgb 12.8 gm/dl (11.8-15.2) 10/08/17 17:51 Hct 39.2 % (35.5-45.6) 10/08/17 17:51 MCV 93 fl (84-94) 10/08/17 17:51 MCH 30 pg (28-32) 10/08/17 17:51 MCHC 33 % (32-34) 10/08/17 17:51 RDW 13.6 % (13.2-15.2) 10/08/17 17:51 Plt Count 263 K/mm3 (140-440) 10/08/17 17:51 Lymph % (Auto) 13.4 % (13.4-35.0) 10/08/17 17:51 [place] % (Auto) 11.2 % (0.0-7.3) H 10/08/17 17:51 Eos % (Auto) 0.2 % (0.0-4.3) 10/08/17 17:51 Baso % (Auto) 0.5 % (0.0-1.8) 10/08/17 17:51 Lymph # 2.1 K/mm3 (1.2-5.4) 10/08/17 17:51 [place] # 1.7 K/mm3 (0.0-0.8) H 10/08/17 17:51 Eos # 0.0 K/mm3 (0.0-0.4) 10/08/17 17:51 Baso # 0.1 K/mm3 (0.0-0.1) 10/08/17 17:51 Seg Neutrophils % 74.7 % (40.0-70.0) H 10/08/17 17:51 Seg Neutrophils # 11.5 K/mm3 (1.8-7.7) H 10/08/17 17:51 ESR 66 mm/Hr (0-20) 10/09/17 15:31 PT 14.3 Sec. (12.2-14.9) 10/08/17 20:38 INR 1.05 (0.87-1.13) 10/08/17 20:38 APTT 33.9 Sec. (24.2-36.6) 10/08/17 20:38 D-Dimer 1127.16 ng/mlDDU (0-234) H 10/08/17 20:38 Sodium 135 mmol/L (137-145) L 10/10/17 00:59 Potassium 3.9 mmol/L (3.6-5.0) 10/10/17 00:59 Chloride 95.6 mmol/L (98-107) L 10/10/17 00:59 Carbon Dioxide 28 mmol/L (22-30) 10/10/17 00:59 Anion Gap 15 mmol/L 10/10/17 00:59 BUN 21 mg/dL (9-20) H 10/10/17 00:59 Creatinine 1.1 mg/dL (0.8-1.5) 10/10/17 00:59 Estimated GFR > 60 ml/min 10/10/17 00:59 BUN/Creatinine Ratio 19 % 10/10/17 00:59 Glucose 204 mg/dL (75-100) H 10/10/17 00:59 POC Glucose 138 (70-105) H 10/10/17 08:22 Lactic Acid 0.90 mmol/L (0.7-2.0) 10/08/17 20:38 Uric Acid 8.4 mg/dL (3.5-7.6) H 10/08/17 20:38 Calcium 10.0 mg/dL (8.4-10.2) 10/10/17 00:59 Magnesium 1.40 mg/dL (1.7-2.3) L 10/08/17 17:51 Total Bilirubin 0.90 mg/dL (0.1-1.2) 10/08/17 17:51 AST 11 units/L (5-40) 10/08/17 17:51 ALT 9 units/L (7-56) 10/08/17 17:51 Alkaline Phosphatase 96 units/L (35-129) 10/08/17 17:51 Total Creatine Kinase 25 units/L (55-170) L 10/08/17 17:51 C-Reactive Protein 19.00 mg/dL (0.00-1.30) H 10/09/17 15:31 NT-Pro-B Natriuret Pep 703.1 pg/mL (0-900) 10/08/17 17:51 Total Protein 6.4 g/dL (6.3-8.2) 10/08/17 17:51 Albumin 4.1 g/dL (3.9-5) 10/08/17 17:51 Albumin/Globulin Ratio 1.8 % 10/08/17 17:51 <YUNG,DIMPLE R - Last Filed: 10/11/17 01:52> Assessment and Plan Assessment and plan: I saw and evaluated the patient on the day of service. I agree with the findings and the plan of care as documented in the Nurse Practitioner's~note, with the following corrections and additions. Patient's RLE pain and Right knee swelling possibly from Acute gout flare. Unlikely patient had a stroke. His symptom much improved with steroid and colchicine. Hospitalist Physical - Constitutional Vitals: Temp Pulse Resp BP Pulse Ox 98.6 F 66 18 146/73 97 10/10/17 20:44 10/10/17 20:49 10/10/17 20:44 10/10/17 20:44 10/10/17 20:49 Results - Labs CBC & Chem 7: 10/08/17 17:51 10/10/17 00:59 Labs: Laboratory Last Values WBC 15.4 K/mm3 (4.5-11.0) H 10/08/17 17:51 RBC 4.24 M/mm3 (3.65-5.03) 10/08/17 17:51 Hgb 12.8 gm/dl (11.8-15.2) 10/08/17 17:51 Hct 39.2 % (35.5-45.6) 10/08/17 17:51 MCV 93 fl (84-94) 10/08/17 17:51 MCH 30 pg (28-32) 10/08/17 17:51 MCHC 33 % (32-34) 10/08/17 17:51 RDW 13.6 % (13.2-15.2) 10/08/17 17:51 Plt Count 263 K/mm3 (140-440) 10/08/17 17:51 Lymph % (Auto) 13.4 % (13.4-35.0) 10/08/17 17:51 [place] % (Auto) 11.2 % (0.0-7.3) H 10/08/17 17:51 Eos % (Auto) 0.2 % (0.0-4.3) 10/08/17 17:51 Baso % (Auto) 0.5 % (0.0-1.8) 10/08/17 17:51 Lymph # 2.1 K/mm3 (1.2-5.4) 10/08/17 17:51 [place] # 1.7 K/mm3 (0.0-0.8) H 10/08/17 17:51 Eos # 0.0 K/mm3 (0.0-0.4) 10/08/17 17:51 Baso # 0.1 K/mm3 (0.0-0.1) 10/08/17 17:51 Seg Neutrophils % 74.7 % (40.0-70.0) H 10/08/17 17:51 Seg Neutrophils # 11.5 K/mm3 (1.8-7.7) H 10/08/17 17:51 ESR 66 mm/Hr (0-20) 10/09/17 15:31 PT 14.3 Sec. (12.2-14.9) 10/08/17 20:38 INR 1.05 (0.87-1.13) 10/08/17 20:38 APTT 33.9 Sec. (24.2-36.6) 10/08/17 20:38 D-Dimer 1127.16 ng/mlDDU (0-234) H 10/08/17 20:38 Sodium 135 mmol/L (137-145) L 10/10/17 00:59 Potassium 3.9 mmol/L (3.6-5.0) 10/10/17 00:59 Chloride 95.6 mmol/L (98-107) L 10/10/17 00:59 Carbon Dioxide 28 mmol/L (22-30) 10/10/17 00:59 Anion Gap 15 mmol/L 10/10/17 00:59 BUN 21 mg/dL (9-20) H 10/10/17 00:59 Creatinine 1.1 mg/dL (0.8-1.5) 10/10/17 00:59 Estimated GFR > 60 ml/min 10/10/17 00:59 BUN/Creatinine Ratio 19 % 10/10/17 00:59 Glucose 204 mg/dL (75-100) H 10/10/17 00:59 POC Glucose 108 (70-105) H 10/10/17 23:16 Hemoglobin A1c 6.3 % (4-6) H 10/10/17 12:52 Lactic Acid 0.90 mmol/L (0.7-2.0) 10/08/17 20:38 Uric Acid 9.7 mg/dL (3.5-7.6) H 10/10/17 12:56 Calcium 10.0 mg/dL (8.4-10.2) 10/10/17 00:59 Magnesium 1.40 mg/dL (1.7-2.3) L 10/08/17 17:51 Total Bilirubin 0.90 mg/dL (0.1-1.2) 10/08/17 17:51 AST 11 units/L (5-40) 10/08/17 17:51 ALT 9 units/L (7-56) 10/08/17 17:51 Alkaline Phosphatase 96 units/L (35-129) 10/08/17 17:51 Total Creatine Kinase 25 units/L (55-170) L 10/08/17 17:51 C-Reactive Protein 19.00 mg/dL (0.00-1.30) H 10/09/17 15:31 NT-Pro-B Natriuret Pep 703.1 pg/mL (0-900) 10/08/17 17:51 Total Protein 6.4 g/dL (6.3-8.2) 10/08/17 17:51 Albumin 4.1 g/dL (3.9-5) 10/08/17 17:51 Albumin/Globulin Ratio 1.8 % 10/08/17 17:51
[2017-10-10] MEDS: DELTASONE PO SCH (14:42)
[2017-10-10] MEDS: GLUCOPHAGE PO SCH (17:49)
[2017-10-10] MEDS ORDERED: NON-FORMULARY (Metformin 1,000 MG) PO SCH (22:00)
[2017-10-10] MEDS ORDERED: PLETAL PO SCH (22:00)
[2017-10-10] MEDS: LOVENOX SUB-Q SCH (22:56)
[2017-10-11 02:08] LABS: Hematocrit 39.2 % (35.5-45.6); Mean Corpuscular HGB Conc 33 % (32-34); Mean Corpuscular Hemoglobin 31 pg (28-32); Mean Corpuscular Volume 92 fl (84-94); Platelet Count 269 K/mm3 (140-440); Red Blood Count 4.25 M/mm3 (3.65-5.03); Red Cell Distribution Width 13.4 % (13.2-15.2)
[2017-10-11] MEDS ORDERED: BENADRYL PO ONE (02:21)
[2017-10-11 02:28] LABS: Calcium 9.9 mg/dL (8.4-10.2)
--- NOTE | 2017-10-11 09:24 | Discharge Summary ---
Providers - Providers Date of Admission: 10/08/17 22:38 Date of discharge: 10/11/17 Attending physician: MATTHEW BARRAGAN 10/09/17 03:18 Consult to Physician [CONS] Stat Comment: [id number] Consulting Provider: JEFRY PERKINS Physician Instructions: left mess. ans. service Reason For Exam: right knee pain and swelling 10/09/17 06:01 Consult to Physician [CONS] Routine Comment: Consulting Provider: VJ OROPEZA Physician Instructions: Reason For Exam: LOWER LIMB PAIN WITH OCCLU. OF L COMMON ILIAC ART. 10/09/17 06:43 Physical Therapy Evaluation and Treat [CONS] Routine Comment: Reason For Exam: WEAKNESS OF THE BILATERAL LOWER EXTREMITY 10/09/17 06:44 Consult to Physician [CONS] Routine Comment: Consulting Provider: CRYSTAL INIGUEZ Physician Instructions: Reason For Exam: WEAKNESS OF THE LOWER LIMBS 10/09/17 07:48 Consult to Interventional Radiology [CONS] Routine Consulting Provider: CRYSTAL LÓPEZ Reason For Exam: arthocentesis rt knee Place consult to:: Notified:: Phone number called:: [phone] Was contact made?: Yes If yes, spoke with:: CHIP Time called:: 08:44 Comment:: JIN Primary care physician: GROUNDMAN/LINEMAN Hospitalization Condition: Stable Hospital course: Brief history obtained from admitting physician -81-year-old male who presents for evaluation of bilateral lower leg pain and sensation change. Patient says he felt weak and couldn't walk because of this feeling. 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 He does have flow to bilateral lower extremities which are not likely to be the cause of his current symptoms Elevated d-dimer VQ scan showed low probability of PE Type 2 diabetes mellitus Chronic Hypomagnesemia Supplemented Hyperuricemia Patient initiated on colchicine for gout DVT prophylaxis Disposition: - TO HOME OR SELFCARE Time spent for discharge: 32 minutes Core Measure Documentation - Palliative Care Palliative Care/ Comfort Measures: Not Applicable Exam - Constitutional Vitals: Temp Pulse Resp BP Pulse Ox 98.0 F 49 L 18 159/64 98 10/11/17 02:24 10/11/17 02:24 10/11/17 02:24 10/11/17 02:24 10/11/17 02:24 Plan Additional Instructions: Please follow up with your Primary care provider within 1 week of discharge. Have your Provider refer you to a neurologist for follow up care. You may also choose to follow up with a neurologist at [facility] [phone] Follow up with: PRIMARY CARE, [Primary Care Provider] - 3-5 Days Prescriptions: AtorvaSTATin [Lipitor] 40 mg PO QHS #30 tablet Colchicine [Colcrys] 0.6 mg PO BID #30 tab predniSONE [Deltasone] 20 mg PO QDAY #7 tablet
[2017-10-11] MEDS ORDERED: NORVASC PO SCH (10:00)
[2017-10-11] MEDS ORDERED: HALFPRIN EC PO SCH (10:00)
[2017-10-11] MEDS: COLCRYS PO SCH (10:05)
[2017-10-11] MEDS: DELTASONE PO SCH (10:05)
[2017-10-11] MEDS: GLUCOPHAGE PO SCH (10:05)
[2017-10-11] MEDS: HALFPRIN EC PO SCH (11:59)
--- NOTE | 2017-10-11 14:27 | Consultation ---
History of Present Illness - [facility] Consult date: 10/10/17 Consult reason: joint pain History of present illness: 81-year-old male who complained of severe right knee pain and swelling for the last week or so patient was admitted to the hospital and was started on therapy currently patient states the pain is much improved using to ambulate in the room with the assistance of physical therapy patient denied a history of similar problems in the past Past History Past Medical History: CAD (with stent that did not work which led then to defibrillator), hypertension, other (gout) Past Surgical History: Other (defibrillator in 2002 of 4 replacements since then ) Social history: other (never illicit drugs. She still works part-time doing wholesale car sales. Was in the [employer] but without chemical exposures.) . denies: smoking (quit in 1998), alcohol abuse (drinks occasional cocktail. Usually 1 or 2 glasses of wine with dinner.), prescription drug abuse, IV drug use Family history: hypertension (unknown), other (no epilepsy). denies: stroke Medications and Allergies Allergies Allergy/AdvReac Type Severity Reaction Status Date / Time Penicillins AdvReac Rash Unverified 06/05/13 09:47 Home Medications Medication Instructions Recorded Confirmed Last Taken Type Aspirin EC [Aspirin Enteric Coated 81 mg PO QDAY 10/09/17 10/09/17 Unknown History TAB] Carvedilol [Coreg] 12.5 mg PO BID 10/09/17 10/09/17 Unknown History Cilostazol [Pletal] 100 mg PO HS 10/09/17 10/09/17 Unknown History amLODIPine [Norvasc] 10 mg PO DAILY 10/09/17 10/09/17 Unknown History metFORMIN 1,000 mg PO BID 10/09/17 10/09/17 Unknown History AtorvaSTATin [Lipitor] 40 mg PO QHS #30 tablet 10/11/17 Unknown Rx Colchicine [Colcrys] 0.6 mg PO BID #30 tab 10/11/17 Unknown Rx predniSONE [Deltasone] 20 mg PO QDAY #7 tablet 10/11/17 Unknown Rx Active Meds: Active Medications Acetaminophen (Tylenol) 650 mg PO Q4H PRN PRN Reason: For Pain/Fever/Headache Amlodipine Besylate (Norvasc) 10 mg PO DAILY [facility] Last Admin: 10/11/17 10:05 Dose: 10 mg Aspirin (Halfprin Ec) 81 mg PO QDAY [facility] Last Admin: 10/11/17 11:59 Dose: Not Given Aspirin (Halfprin Ec) 81 mg PO QDAY [facility] Last Admin: 10/11/17 11:59 Dose: Not Given Atorvastatin Calcium (Lipitor) 40 mg PO QHS [facility] Last Admin: 10/10/17 22:55 Dose: 40 mg Cilostazol (Pletal) 100 mg PO HS [facility] Last Admin: 10/10/17 22:56 Dose: 100 mg Colchicine (Colcrys) 0.6 mg PO BID [facility] Last Admin: 10/11/17 10:05 Dose: 0.6 mg Enoxaparin Sodium (Lovenox) 40 mg SUB-Q QDAY@2200 [facility] Last Admin: 10/10/17 22:56 Dose: 40 mg Hydralazine HCl (Apresoline) 10 mg IV Q30MIN PRN PRN Reason: Hypertension Metformin HCl (Glucophage) 1,000 mg PO BIDDIAB [facility] Last Admin: 10/11/17 10:05 Dose: 1,000 mg Morphine Sulfate (Morphine) 2 mg IV Q4H PRN PRN Reason: Pain, Moderate (4-6) Ondansetron HCl (Zofran) 4 mg IV Q8H PRN PRN Reason: Nausea And Vomiting Prednisone (Deltasone) 20 mg PO QDAY [facility] Last Admin: 10/11/17 10:05 Dose: 20 mg Physical Examination - Physical exam Narrative exam: At the right knee patient was noted to have moderate swelling with effusion there were no overlying redness or erythema he had good passive range of motion and he was able to ambulate about the room with mild to moderate discomfort Plain x-rays taken of the right knee reveal mild to moderate osteoarthritic changes primarily in the medial compartment
[2017-10-11 15:20] VITALS: BP 149/67
== END 2017-10-11 16:30 | disposition home or self-care (01) | DRG 299 ==
LOC: ED 13:41 → 2B-ACE 22:38
PROVIDERS: ADMIT Internal Medicine; ATTEND Internal Medicine
DX: E11.51 Type 2 diabetes mellitus with diabetic peripheral angiopathy without gangrene (principal); I26.99 Other pulmonary embolism without acute cor pulmonale; I74.5 Embolism and thrombosis of iliac artery; E83.42 Hypomagnesemia; I25.10 Atherosclerotic heart disease of native coronary artery without angina pectoris; M19.90 Unspecified osteoarthritis, unspecified site; M48.061 Spinal stenosis, lumbar region without neurogenic claudication; M10.9 Gout, unspecified; Z88.0 Allergy status to penicillin; Z82.49 Family history of ischemic heart disease and other diseases of the circulatory system; I25.2 Old myocardial infarction; Z95.810 Presence of automatic (implantable) cardiac defibrillator; Z79.82 Long term (current) use of aspirin
CPT/HCPCS: 36415; 70450; 71046; 72131; 75635; 78582; 80048; 80053; 82140; 82330; 82550; 82607; 82652; 82962; 83036; 83735; 83880; 84550; 85025; 85027; 85379; 85610; 85652; 85730; 86140; 93005; 93010; 93880; 93970; 96374; 96375; A9270-GY; A9540; A9558; G8978-GP; G8979-GP; J0696; J1650; J2270; J2405; J2920; J3475; J7030; J7040; J7512; Q0163; Q9967